=== PATIENT | female | born 2000 | race Hispanic/Latino ===

== ENCOUNTER 2020-12-07 14:38 | Emergency (ER) | payer SELFPAY ==
[2020-12-07 15:05] VITALS: BP 139/83
[2020-12-07] MEDS ORDERED: ONDANSETRON 4 MG ODT TAB PO ONE (15:59)
[2020-12-07 16:20] LABS: Basophils % (Auto) 0.3 % (0.0-1.8); Eosinophils # (Auto) 0.1 K/mm3 (0.0-0.4); Eosinophils % (Auto) 1.7 % (0.0-4.3); Hematocrit 45.4 % (30.3-42.9); Hemoglobin 15.7 gm/dl (10.1-14.3); Lymphocytes # (Auto) 1.4 K/mm3 (1.2-5.4); Lymphocytes % (Auto) 25.8 % (13.4-35.0); Mean Corpuscular HGB Conc 35 % (30-34); Mean Corpuscular Volume 93 fl (79-97); Monocytes # (Auto) 0.6 K/mm3 (0.0-0.8); Monocytes % (Auto) 11.4 % (0.0-7.3); Platelet Count 203 K/mm3 (140-440); Red Blood Count 4.89 M/mm3 (3.65-5.03); Red Cell Distribution Width 13.4 % (13.2-15.2)
[2020-12-07 16:42] LABS: Alanine Aminotransferase 32 units/L (7-56); Albumin 3.8 g/dL (3.9-5); BUN/Creatinine Ratio 8; Blood Urea Nitrogen 6 mg/dL (7-17); Calcium 8.6 mg/dL (8.4-10.2); Hemolysis Index 18
--- NOTE | 2020-12-07 17:23 | XRay Report ---
CHEST 2 VIEWS INDICATION / CLINICAL INFORMATION: Cough. Chest pain, fever and vomiting for 3 days. COMPARISON: None available. FINDINGS: SUPPORT DEVICES: None. HEART / MEDIASTINUM: The heart size and pulmonary vasculature are normal. LUNGS / PLEURA: No significant pulmonary or pleural abnormality. No pneumothorax. ADDITIONAL FINDINGS: The visualized upper abdomen is unremarkable. IMPRESSION: No acute findings. There is no evidence of pneumonia. Signer Name: Chino Rodriguez MD Signed: 12/07/2020 5:19 PM Workstation Name: [id number]
--- NOTE | 2020-12-07 18:01 | Emergency Department Report ---
ED General Adult HPI - General Chief complaint: Fever Stated complaint: VOMITING/COUGH Time Seen by Provider: 12/07/20 15:55 Source: patient Mode of arrival: Ambulatory Limitations: No Limitations - History of Present Illness Initial comments: Patient is a 20-year-old female presents emergency room with complaints of a cough that began 3 days ago. She has associated nausea, vomiting, diarrhea. She states that she is also been experiencing fever, chills, generalized body aches. She states that she has not been able to tolerate very much p.o. intake. She denies any sore throat, ear pain, abdominal pain, shortness of breath, chest pain. She denies any sick contacts or recent travel. Patient denies past medical history. She has an allergy to iodine and morphine. She states that she is a non-smoker. - Related Data Previous Rx's Medication Instructions Recorded Last Taken Type Acetaminophen [Tylenol] 650 mg PO Q8HR PRN #20 capsule 12/07/20 Unknown Rx Benzonatate [Tessalon Perles] 100 mg PO Q8HR PRN #12 capsule 12/07/20 Unknown Rx Ondansetron [Zofran Odt] 4 mg PO Q8HR PRN #10 tab.rapdis 12/07/20 Unknown Rx guaiFENesin ER [Mucinex ER] 600 mg PO BID #14 tablet.er 12/07/20 Unknown Rx Allergies Allergy/AdvReac Type Severity Reaction Status Date / Time iodine Allergy Hives Verified 12/07/20 14:58 morphine Allergy Anaphylaxis Verified 12/07/20 14:58 CT DYE Allergy Hives Uncoded 12/07/20 14:58 ED Review of Systems ROS: Stated complaint: VOMITING/COUGH Other details as noted in HPI Comment: All other systems reviewed and negative ED Past Medical Hx - Past Medical History Previous Medical History?: No - Surgical History Hx Appendectomy: Yes - Social History Smoking Status: Never Smoker Substance Use Type: Alcohol - Medications Home Medications: Home Medications Medication Instructions Recorded Confirmed Last Taken Type Acetaminophen [Tylenol] 650 mg PO Q8HR PRN #20 capsule 12/07/20 Unknown Rx Benzonatate [Tessalon Perles] 100 mg PO Q8HR PRN #12 capsule 12/07/20 Unknown Rx Ondansetron [Zofran Odt] 4 mg PO Q8HR PRN #10 tab.rapdis 12/07/20 Unknown Rx guaiFENesin ER [Mucinex ER] 600 mg PO BID #14 tablet.er 12/07/20 Unknown Rx ED Physical Exam - General Limitations: No Limitations General appearance: alert, in no apparent distress - Head Head exam: Present: atraumatic, normocephalic - Eye Eye exam: Present: normal appearance - ENT ENT exam: Present: mucous membranes moist - Respiratory Respiratory exam: Present: normal lung sounds bilaterally. Absent: respiratory distress, wheezes, rales, rhonchi, stridor, chest wall tenderness, accessory muscle use, decreased breath sounds, prolonged expiratory - Cardiovascular Cardiovascular Exam: Present: regular rate, normal rhythm, normal heart sounds. Absent: systolic murmur, diastolic murmur, rubs, gallop - GI/Abdominal GI/Abdominal exam: Present: soft, normal bowel sounds. Absent: distended, tenderness, guarding, rebound, rigid - Neurological Exam Neurological exam: Present: alert, oriented X3 - Psychiatric Psychiatric exam: Present: normal affect, normal mood - Skin Skin exam: Present: warm, dry, intact ED Course Vital Signs 12/07/20 15:04 Temperature 98.9 F Pulse Rate 99 H Respiratory 20 Rate Blood Pressure 139/83 O2 Sat by Pulse 95 Oximetry - Reevaluation(s) Reevaluation #1: 12/07/20 18:01 Patient's qualitative came back positive. She states that on 11/05/2020 she had a miscarriage, she states that her [facility] has been monitoring her quads but they never went to 0, she states that she did not have a repeat ultrasound to rule out any retained products of conception, she states that she has been having some intermittent spotting over the last couple days and mild abdominal cramping, will order ultrasound to rule out any retained products - Consultations Consultation #1: 12/07/20 21:[address] Sanchez, [facility] regarding patient history and results, advised that patient can follow-up with her outpatient [facility] and had no further recommendations at this time. ED Medical Decision Making - Lab Data Result diagrams: 12/07/20 16:08 12/07/20 16:08 Lab Results 12/07/20 12/07/20 12/07/20 Range/Units 16:08 16:08 16:08 WBC 5.3 (4.5-11.0) K/mm3 RBC 4.89 (3.65-5.03) M/mm3 Hgb 15.7 H (10.1-14.3) gm/dl Hct 45.4 H (30.3-42.9) % MCV 93 (79-97) fl MCH 32 (28-32) pg MCHC 35 H (30-34) % RDW 13.4 (13.2-15.2) % Plt Count 203 (140-440) K/mm3 Lymph % (Auto) 25.8 (13.4-35.0) % Perkins % (Auto) 11.4 H (0.0-7.3) % Eos % (Auto) 1.7 (0.0-4.3) % Baso % (Auto) 0.3 (0.0-1.8) % Lymph # (Auto) 1.4 (1.2-5.4) K/mm3 Perkins # (Auto) 0.6 (0.0-0.8) K/mm3 Eos # (Auto) 0.1 (0.0-0.4) K/mm3 Baso # (Auto) 0.0 (0.0-0.1) K/mm3 Seg Neutrophils % 60.8 (40.0-70.0) % Seg Neutrophils # 3.2 (1.8-7.7) K/mm3 Sodium 138 (137-145) mmol/L Potassium 4.2 (3.6-5.0) mmol/L Chloride 101.4 (98-107) mmol/L Carbon Dioxide 27 (22-30) mmol/L Anion Gap 14 mmol/L BUN 6 L (7-17) mg/dL Creatinine 0.8 (0.6-1.2) mg/dL Estimated GFR > 60 ml/min BUN/Creatinine Ratio 8 % Glucose 86 (65-100) mg/dL Calcium 8.6 (8.4-10.2) mg/dL Total Bilirubin 0.30 (0.1-1.2) mg/dL AST 28 (5-40) units/L ALT 32 (7-56) units/L Alkaline Phosphatase 69 (35-129) units/L Total Protein 7.5 (6.3-8.2) g/dL Albumin 3.8 L (3.9-5) g/dL Albumin/Globulin Ratio 1.0 % HCG, Qual Positive (Negative) HCG, Quant (0-4) mIU/mL 12/07/20 Range/Units 17:54 WBC (4.5-11.0) K/mm3 RBC (3.65-5.03) M/mm3 Hgb (10.1-14.3) gm/dl Hct (30.3-42.9) % MCV (79-97) fl MCH (28-32) pg MCHC (30-34) % RDW (13.2-15.2) % Plt Count (140-440) K/mm3 Lymph % (Auto) (13.4-35.0) % Perkins % (Auto) (0.0-7.3) % Eos % (Auto) (0.0-4.3) % Baso % (Auto) (0.0-1.8) % Lymph # (Auto) (1.2-5.4) K/mm3 Perkins # (Auto) (0.0-0.8) K/mm3 Eos # (Auto) (0.0-0.4) K/mm3 Baso # (Auto) (0.0-0.1) K/mm3 Seg Neutrophils % (40.0-70.0) % Seg Neutrophils # (1.8-7.7) K/mm3 Sodium (137-145) mmol/L Potassium (3.6-5.0) mmol/L Chloride (98-107) mmol/L Carbon Dioxide (22-30) mmol/L Anion Gap mmol/L BUN (7-17) mg/dL Creatinine (0.6-1.2) mg/dL Estimated GFR ml/min BUN/Creatinine Ratio % Glucose (65-100) mg/dL Calcium (8.4-10.2) mg/dL Total Bilirubin (0.1-1.2) mg/dL AST (5-40) units/L ALT (7-56) units/L Alkaline Phosphatase (35-129) units/L Total Protein (6.3-8.2) g/dL Albumin (3.9-5) g/dL Albumin/Globulin Ratio % HCG, Qual (Negative) HCG, Quant 29.69 H (0-4) mIU/mL - Radiology Data Radiology results: report reviewed ULTRASOUND OBSTETRIC INDICATION / CLINICAL INFORMATION: , cramping, n/v. TECHNIQUE: Transvaginal. COMPARISON: None available. FINDINGS: Uterus: Uterus measures 6.9 cm in length. Endometrial stripe measures 5.5 mm. No intrauterine is seen ADNEXA: The right ovary measures 1.4 cm and the left ovary measures 3.2 cm. There is a 2 cm cyst in the left ovary. FREE FLUID: There is a very small amount of free fluid ADDITIONAL FINDINGS: None. IMPRESSION: 1. No intrauterine is seen. There is minimal free fluid. There is a 2 cm cyst in the left ovary. Correlation with serum beta hCG level is recommended. Follow-up ultrasound should be obtained as clinically warranted. While I do not see any definitive evidence of ectopic , ectopic cannot be excluded based upon this ultrasound alone. Signer Name: Adrian Danielson MD Signed: 12/07/2020 6:14 PM Workstation Name: [id number] Ordering Physician: PERCY PEREZ Date of Service: 12/07/20 Procedure(s): XR chest routine 2V Accession Number(s): [id number] cc: PERCY PEREZ Fluoro Time In Minutes: CHEST 2 VIEWS INDICATION / CLINICAL INFORMATION: Cough. Chest pain, fever and vomiting for 3 days. COMPARISON: None available. FINDINGS: SUPPORT DEVICES: None. HEART / MEDIASTINUM: The heart size and pulmonary vasculature are normal. LUNGS / PLEURA: No significant pulmonary or pleural abnormality. No pneumothorax. ADDITIONAL FINDINGS: The visualized upper abdomen is unremarkable. IMPRESSION: No acute findings. There is no evidence of pneumonia. Signer Name: Chino Rodriguez MD Signed: 12/07/2020 5:19 PM Workstation Name: [id number] Transcribed By: RT Dictated By: Chino Rodriguez MD Electronically Authenticated By: Chino Rodriguez MD Signed Date/Time: 12/07/201718 DD/ 17 TD/TT: - Medical Decision Making Patient is a 20-year-old female presents emergency room with complaints of a cough that began 3 days ago. She has associated nausea, vomiting, diarrhea. She states that she is also been experiencing fever, chills, generalized body aches. She states that she has not been able to tolerate very much p.o. intake. She denies any sore throat, ear pain, abdominal pain, shortness of breath, chest pain. She denies any sick contacts or recent travel. Patient denies past medical history. She has an allergy to iodine and morphine. She states that she is a non-smoker. Vitals are stable. No abnormality on physical examination as doc umented in chart. Chest x-ray with no acute process. Qualitative hCG came back positive. Patient's qualitative came back positive. She states that on 11/05/2020 she had a miscarriage, she states that her [facility] has been monitoring her quads but they never went to 0, she states that she did not have a repeat ultrasound to rule out any retained products of conception, she states that she has been h aving some intermittent spotting over the last couple days and mild abdominal cramping, will order ultrasound to rule out any retained products. hCG quant is 29. OB ultrasound:1. No intrauterine is seen. There is minimal free fluid. There is a 2 cm cyst in the left ovary. Correlation with serum bethCG level is recommended. Follow-up ultrasound should be obtained as clinically warranted. While I do not see any definitive evidence of ectopic , ectopic cannot be excluded based upon this ultrasound alone. Discussed case with Dr. Lyons, ER attending who advised to speak with [facility] on-call.Spoke with Dr. Sanchez, [facility] regarding patient history and results, advised that patient can follow-up with her outpatient [facility] and had no further recommendations at this time. Symptoms likely related to viral patient is presenting with the symptoms during COVID-19 pandemic, possibility of COVID-19 with patient, discuss strict return precautions, discussed outpatient testing, discussed quarantine. Patient was able to tolerate PO intake in the ED after receiving Zofran. Given prescription for Zofran, Mucinex, tylenol, tessalon perles. Advised patient Please take medication as prescribed. Please follow-up with your [facility]. Today 12/07/2020 your hCG quant is 29. Please increase your fluid intake over the next several days. May take Tylenol as needed for fever or body aches. Follow-up with a primary care doctor for reexamination. Return to emergency room immediately for any new or worsening symptoms including but not limited to difficulty breathing, shortness of breath, severe chest pain, unable to tolerate by mouth intake, etc. Please self quarantine for 10 days from the onset of your symptoms. Please do not go out in public. If you are around others at home please wear a mask. If you need to cough or sneeze please do so in a napkin and immediately throw it away and immediately wash your hands. Wash your hands frequently. Wipe everything down. Recommend for you to get COVID-19 testing, may have this done at primary care doctor, health department, [facility] or [facility]-through testing centers. Critical care attestation.: If time is entered above; I have spent that time in minutes in the direct care of this critically ill patient, excluding procedure time. ED Disposition Clinical Impression: Viral URI, Elevated serum hCG Ovarian cyst Qualifiers: Laterality: left Qualified Code(s): N83.202 - Unspecified ovarian cyst, left side Disposition: - TO HOME OR SELFCARE Is pt being admited?: No Does the pt Need Aspirin: No Condition: Stable Instructions: Ovarian Cyst, Viral Respiratory Infection Additional Instructions: Please take medication as prescribed. Please follow-up with your [facility]. Today 12/07/2020 your hCG quant is 29. Please increase your fluid intake over the next several days. May take Tylenol as needed for fever or body aches. Follow-up with a primary care doctor for reexamination. Return to emergency room i mmediately for any new or worsening symptoms including but not limited to difficulty breathing, shortness of breath, severe chest pain, unable to tolerate by mouth intake, etc. Please self quarantine for 10 days from the onset of your symptoms. Please do not go out in public. If you are around others at home please wear a mask. If you need to cough or sneeze please do so in a napkin and immediately throw it away and immediately wash your hands. Wash your hands frequently. Wipe everything down. Recommend for you to get COVID-19 testing, may have this done at primary care doctor, health department, [facility] or [facility]-through testing centers. 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
--- NOTE | 2020-12-08 07:52 | Ultrasound Report ---
ULTRASOUND OBSTETRIC INDICATION / CLINICAL INFORMATION: , cramping, n/v. TECHNIQUE: Transvaginal. COMPARISON: None available. FINDINGS: Uterus: Uterus measures 6.9 cm in length. Endometrial stripe measures 5.5 mm. No intrauterine pregnan cy is seen ADNEXA: The right ovary measures 1.4 cm and the left ovary measures 3.2 cm. There is a 2 cm cyst in t he left ovary. FREE FLUID: There is a very small amount of free fluid ADDITIONAL FINDINGS: None. IMPRESSION: 1. No intrauterine is seen. There is minimal free fluid. There is a 2 cm cyst in the left o vary. Correlation with serum beta hCG level is recommended. Follow-up ultrasound should be obtained a s clinically warranted. While I do not see any definitive evidence of ectopic , ectopic cannot be excluded based upo n this ultrasound alone. Signer Name: Adrian Danielson MD Signed: 12/07/2020 7:14 PM Workstation Name: [id number]
== END 2020-12-07 21:15 | disposition home or self-care (01) ==
LOC: ED 14:38
DX: J06.9 Acute upper respiratory infection, unspecified (principal); N83.202 Unspecified ovarian cyst, left side; R89.1 Abnormal level of hormones in specimens from other organs, systems and tissues; Z90.49 Acquired absence of other specified parts of digestive tract; Z88.8 Allergy status to other drugs, medicaments and biological substances; Z79.899 Other long term (current) drug therapy
CPT/HCPCS: 36415; 71046; 76801; 76817; 80053; 84702; 84703; 85025; Q0162